=== PATIENT | female | born 1960 | race Caucasian/White ===

== ENCOUNTER 2022-11-17 11:40 | Emergency (ER) | payer OTHER, BC ==
[2022-11-17] MEDS ORDERED: Sodium Chloride 0.9% 10 ML Syringe FLUSH PRN (11:52)
[2022-11-17 12:38] LABS: ANION GAP 13.7 mEq/L (7-13); CHLORIDE,CL 102 mmol/L (98-107); SODIUM,NA 140 mmol/L (136-145)
[2022-11-17 12:39] LABS: ESTIMATED GFR 59 mL/min (>=60)
== END 2022-11-17 14:05 | disposition home or self-care (01) ==
LOC: DL.ED 11:40
DX: R07.9 Chest pain, unspecified (principal); Z91.018 Allergy to other foods; Z88.1 Allergy status to other antibiotic agents; Z88.0 Allergy status to penicillin; Z88.8 Allergy status to other drugs, medicaments and biological substances
CPT/HCPCS: 36415; 71045; 80053; 81001; 82150; 82607; 82746; 83605; 83690; 83735; 84443; 84484; 85025; 86140; 93005; 93010; 99284; 99285